=== PATIENT | female | born 1930 | race Two or more races ===

== ENCOUNTER 2018-09-01 08:37 | Emergency (ER) | payer MEDICARE ==
[~2018-09-01] VITALS: Ht 152.4 cm; Wt 49.9 kg
[~2018-09-01 08:37] MED LIST: AMLO10TA4 PO; ISOS60TA4 PO; LOSA100T3 PO; METO25TA6 PO; [UNRECOGNIZED DRUG - REMARK]
[2018-09-01] MEDS ORDERED: ACETAMINOPHEN 325 MG TABLET ONE (08:43)
--- NOTE | 2018-09-01 08:44 | NUR ---
DR DAS AT BEDSIDE FOR EVAL.
--- NOTE | 2018-09-01 08:50 | NUR ---
CALLED [facility] AT [place] . WAS INFORMED THAT SHE IS INDEPENDENT. GOT SON'S NUMBER [phone]
[2018-09-01] MEDS ORDERED: ACETAMINOPHEN 325 MG TABLET PO ONE (09:00)
--- NOTE | 2018-09-01 09:02 | NUR ---
RADIOLOGY AT BEDSIDE FOR L RIB AND HIP XRAY.
[2018-09-01] MEDS ORDERED: AMLODIPINE BESYLATE 5 MG TABLET PO ONE (09:30)
[2018-09-01] MEDS ORDERED: AMLODIPINE BESYLATE 5 MG TABLET ONE (09:35)
[2018-09-01] MEDS ORDERED: METOPROLOL TARTRATE 25 MG TABLET ONE (09:43)
--- NOTE | 2018-09-01 09:57 | NUR ---
RADDIOLOGY BACK AT BEDSIDE FOR L FEMUR XRAY.
[2018-09-01] MEDS ORDERED: METOPROLOL TARTRATE 25 MG TABLET PO ONE (10:00)
--- NOTE | 2018-09-01 11:06 | NUR ---
CALLED [facility] AT [place] . THEY WILL PICK HER UP BY [phone]
--- NOTE | 2018-09-01 12:02 | NUR ---
PT AMBULATORY W/ WALKER. ASSISTED LIVING PERSONEL PICKED UP PT. STABLE CONDITION.
[2018-09-01 12:04] VITALS: BP 166/87
== END 2018-09-01 12:05 | disposition home or self-care (01) ==
LOC: ER 08:40
DX: S20.212A Contusion of left front wall of thorax, initial encounter (principal); S50.01XA Contusion of right elbow, initial encounter; I10 Essential (primary) hypertension; J44.9 Chronic obstructive pulmonary disease, unspecified; I25.2 Old myocardial infarction; Z85.118 Personal history of other malignant neoplasm of bronchus and lung; Z98.890 Other specified postprocedural states; W18.39XA Other fall on same level, initial encounter; Y93.89 Activity, other specified; Y92.002 Bathroom of unspecified non-institutional (private) residence as the place of occurrence of the external cause; Y99.8 Other external cause status
CPT/HCPCS: 71100-TC; 72170-TC; 73552

== ENCOUNTER 2018-11-26 09:09 | Inpatient (IN) | payer MEDICARE ==
[~2018-11-26] VITALS: Ht 152.4 cm; Wt 50.0 kg
--- NOTE | 2018-11-26 09:13 | NUR ---
PT [id number], FROM [facility], C/O LEFT ELBOW PAIN AND SKIN TEAR S/P FALL, -KO, PT IS AAOX2, NOT IN RESPIRATORY DISTRESS, HOOKED TO MONITOR, KEPT RESTED AND COMFORTABLE, WILL CONTINUE TO MONITOR.
--- NOTE | 2018-11-26 09:17 | NUR ---
AT BEDSIDE FOR EVAL.
[2018-11-26] MEDS ORDERED: AMLO5TAB9 PO (09:26)
[2018-11-26] MEDS ORDERED: ALBU8.5H8 INH (09:26)
[2018-11-26] MEDS ORDERED: BRIM5DRO5 EACHEYE (09:26)
--- NOTE | 2018-11-26 09:28 | NUR ---
CALL FROM [facility],[phone], SHE CAN COME AND PICK HER UP WHEN DISCHARGED
[2018-11-26] MEDS ORDERED: IV NS 0.9% 1,000 ML BAG IV ONE (09:30)
--- NOTE | 2018-11-26 09:30 | NUR ---
IV LINE ESTABLISHED, BLOOD DRAWNED AND SENT TO LAB.
--- NOTE | 2018-11-26 09:35 | NUR ---
URINE SPECIMEN COLLECTED AND SENT TO LAB.
[2018-11-26 09:38] LABS: BASOPHILS % (AUTO) 0.4 % (0.0-2.0); EOSINOPHILS % (AUTO) 0.1 % (0.0-6.0); HEMATOCRIT 43 % (33-45); HEMOGLOBIN 14.4 g/dL (11.5-14.8); LYMPHOCYTES # (AUTO) 0.4 /CMM (0.8-4.8); LYMPHOCYTES % (AUTO) 3.6 % (20.0-44.0); MEAN CORPUSCULAR HGB CONC 34 g/dl (31.0-36.0); MEAN CORPUSCULAR VOLUME 94 fL (82-100); MONOCYTES # (AUTO) 0.7 /CMM (0.1-1.30); MONOCYTES % (AUTO) 6.4 % (2.0-12.0); NEUTROPHILS # (AUTO) 9.7 /CMM (1.8-8.9); NEUTROPHILS % (AUTO) 89.5 % (43.0-81.0); PLATELET COUNT (AUTO) 227 /CMM (150-450); RED BLOOD CELL COUNT(AUTO) 4.57 MIL/uL (4.0-5.2); WHITE BLOOD COUNT (AUTO) 10.8 K/uL (4.3-11.0)
--- NOTE | 2018-11-26 09:40 | NUR ---
RIBBING MACHINE OPERATOR AT BEDSIDE FOR XRAY.
[2018-11-26 09:48] LABS: APPEARANCE,URINE Clear (CLEAR); BILIRUBIN,URINE Negative (NEGATIVE); BLOOD, URINE Trace-lysed Ery/uL (NEGATIVE); COLOR,URINE Yellow (YELLOW); KETONES,URINE Trace (NEGATIVE); LEUKOCYTE ESTERASE ,URINE Negative (NEGATIVE); NITRITE, URINE Negative (NEGATIVE); PROTEIN,URINE Negative (NEGATIVE); UGLUCOSE Negative (NEGATIVE)
--- NOTE | 2018-11-26 09:52 | NUR ---
PT IS WHEELED TO CT SCAN.
[2018-11-26 09:56] LABS: CALCIUM, SERUM 8.8 mg/dL (8.5-10.1); CARBON DIOXIDE 21 mmol/L (21-32); CHLORIDE 109 mmol/L (98-107); GLUCOSE 140 mg/dL (74-106); POTASSIUM 3.6 mmol/L (3.5-5.1); SODIUM SERUM 143 mmol/L (136-145); UREA NITROGEN, BLOOD 19 mg/dL (7-18)
[2018-11-26 10:01] LABS: ALANINE AMINOTRANSFERASE 21 U/L (12-78); ALBUMIN 3.5 g/dL (3.4-5.0); ALKALINE PHOSPHATASE 101 U/L (46-116); ASPARTATE AMINOTRANSFERASE 24 U/L (15-37); BILIRUBIN,DIRECT 0.2 mg/dL (0.0-0.2); BILIRUBIN,TOTAL 0.6 mg/dL (0.2-1.0); TOTAL PROTEIN, SERUM 7.2 g/dL (6.4-8.2)
[2018-11-26 10:01] LABS: BACTERIA,URINE Few /HPF (None Seen); RBC,URINE 0-2 /HPF (0-2); SQUAMOUS EPITHELIAL CELL,UR Few /HPF (None Seen); WBC,URINE 0-2 /HPF (0-3)
--- NOTE | 2018-11-26 10:05 | NUR ---
CALLED NURSING SUP. FOR TELE BED.
[2018-11-26] MEDS ORDERED: LEVOFLOXACIN 500 MG /D5W 100ML 500 MG/100 ML PIGGYBACK IV ONE (10:30)
[2018-11-26] MEDS ORDERED: LEVOFLOXACIN 750 MG /D5W 150ML 150 ML IV ONE (10:31)
[2018-11-26] MEDS ORDERED: LEVOFLOXACIN 500 MG /D5W 100ML 100 ML IV ONE (10:36)
--- NOTE | 2018-11-26 11:02 | NUR ---
CALLED DR. COATS, TRANSFERRED CALL TO DR. LINDQUIST.
--- NOTE | 2018-11-26 11:10 | NUR ---
CALLED [facility], ASA NICOLE
--- NOTE | 2018-11-26 11:21 | NUR ---
AT BEDSIDE FOR EVAL.
--- NOTE | 2018-11-26 11:33 | NUR ---
REPORT GIVEN TO CHEMA YEH FOR MARTHA, WITH ONGOING ANTIBIOTIC.
[2018-11-26] MEDS ORDERED: BENZOIN COMPOUND TINCT 60 ML BOTTLE ONE (11:38)
[2018-11-26 12:00] VITALS: BP 152/84
[2018-11-26] MEDS ORDERED: Z GUARD REMEDY 2 OZ OINT TP PRN (12:30)
[2018-11-26] MEDS ORDERED: ALBUTEROL SULFATE INH 18 GM HFA.AER.AD NEB PRN (12:30)
[2018-11-26] MEDS ORDERED: ALBUTEROL FS 2.5 MG/3 ML VIAL.NEB NEB PRN (12:30)
[2018-11-26] MEDS ORDERED: ACETAMINOPHEN 325 MG TABLET PO PRN (12:30)
[2018-11-26] MEDS ORDERED: HYDROCODONE/APAP 5/325MG 1 EACH TABLET PO PRN (12:30)
[2018-11-26] MEDS ORDERED: ONDANSETRON HCL/PF 4 MG/2 ML VIAL IVP PRN (12:30)
--- NOTE | 2018-11-26 13:29 | NUR ---
BRASS CHASER ADMITTING NOTES RECEIVED REPORT FROM Torres NURSE JEAN CLAUDE GREY AND ADMITTED PT TO UNIT AT 1200 VIA GURNEY. TRANSFERRED PT TO BED GENTLY. PT IS A/O X3 AND ABLE TO MAKE NEEDS KNOWN WITH NO C/O PAIN OR DISCOMFORTS AT THIS TIME. PT ORIENTED TO UNIT, ROOM AND STAFF. PT WITH ADMITTING DX OF NSTEMI. 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 V/S TAKEN AND RECORDED. PHYSICAL ASSESSMENT DONE. PT WITH SOFT AND NON-DISTENDED ABDOMEN WITH POSITIVE BOWEL SOUNDS ON FOUR QUADRANTS. RIGHT LOWER LOBE OF LUNGS IS DIMINISHED ON AUSCULTATION. PHOTOS OF SKIN ISSUES TAKEN AND FILED ON CHART. PT WITH IV ACCESS INTACT AND FLUSHES WELL AT RIGHT AC G#18. PT PLACED ON TELEMONITORING WITH AND SHOWS SR ST WITH HR B/W 90-110, NO C/O CARDIAC DISTRESS VOICED. SAFETY MEASURES INITIATED. BED PLACED ON LOW LOCKED POSITION WITH ST UP X2. CALL LIGHT WITHIN REACH. WILL CONTINUE TO MONITOR PT ACCORDINGLY
--- NOTE | 2018-11-26 15:13 | NUR ---
RN NOTES SPOKE TO SECOND HAND BRYAN AND SAID THAT THEY WILL TRY TO DO U/S GUIDED THORACENTESIS TODAY IF NOT THEN TOMORROW. WILL FOLLOW-UP
--- NOTE | 2018-11-26 15:37 | NUR ---
RN NOTES MD WITH ORDER TO DO U/S GUIDED PARACENTESIS. PT UNABLE TO SIGNED BEC SHE'S BLIND. CONSENT OBTAINED VIA TELEPHONE FROM SON RIGOBERTO OAKES AT [facility] # [phone].
[2018-11-26 16:00] VITALS: BP 163/83
[2018-11-26] MEDS: BRIMONIDINE TARTRATE OPHT SOLN 5 ML BOTTLE EACHEYE SCH (16:33)
[2018-11-26] MEDS: METOPROLOL TARTRATE 25 MG TABLET PO SCH (16:34)
--- NOTE | 2018-11-26 17:00 | NUR ---
RN NOTES RECEIVED CALL FROM CELEBRITY CHEF ENTREPRENEUR MEDIA PERSONALITY CHRISTIANO HASTINGS THAT PT HAS CRITICAL TROPONIN LEVEL 1.442 THIS AFTERNOON. PT WITH NO C/O CARDIAC DISTRESS. DR NICOLE MADE AWARE WITH ORDER TO CHECK CPK LEVEL AND WAS 172 THIS MORNING AND INFORMED HIM OF SAID CPK RESULT. NO NEW OTHER ORDER MADE AT THIS TIME. WILL CONTINUE TO MONITOR PT.
[2018-11-26] MEDS ORDERED: ENOXAPARIN SODIUM 40 MG/0.4 ML DISP.SYRIN SQ SCH (18:00)
--- NOTE | 2018-11-26 18:10 | NUR ---
RN NOTES PT S/P RIGHT LUNG THORACENTESIS THIS AFTERNOON BY DR ALBARRAN WITH OUTPUT OF 700 BLOODY [id number] FLUID NOTED. FLUIDS SENT TO LAB FOR SAFE KEEPING IN CASE MD WILL ORDER SOME FUTURE TEST. WILL CONTINUE TO MONITOR
[2018-11-26] MEDS: ASPIRIN 81 MG TAB.CHEW PO SCH (18:31)
--- NOTE | 2018-11-26 18:40 | NUR ---
COMPUTER EDUCATION TEACHER CLOSING NOTES PT AWAKE AND RESTING AT MODERATE HIGH BACKREST POSITION. A/O X3. ABLE TO MAKE NEEDS KNOWN. PT IS LEGALLY BLIND ON BOTH EYES. S/P THORACENTESIS ON RIGHT LUNG, DRESSING ON INPLACE TO RIGHT BACK WITH NO ACTIVE BLEEDING NOTED. ON 02 VIA N/C AT 2LPM, TOLERATING WELL WITH NO SOB NOTED. IV HL ON RAC G#18 INTACT, PATENT AND FLUSHES WELL. ALL NEEDS AND CARE ATTENDED WELL. PT TURNED FROM SIDE TO SIDE Q 2HRS AND PRN. ALL NEEDS AND CARE ATTENDED WELL. SAFETY MEASURES KEPT IN PLACE. BED IN LOW LOCKED POSITION WITH SR UP X2. CALL LIGHT WITHIN REACH. WILL ENDORSE TO SAWMILL TALLY CLERK NURSE FOR MARTHA. Addendum: 11/26/18 at 1845 by LINDSEY BROWN RN ADDENDUM PATIENT ON TELE-MONITORING WITH CURRENT READING OF SINUS [id number] WITH HR ON THE 70'S, PT WITH NO C/O CARDIAC DISTRESS VOICED. MONITORING CONTINUES.
--- NOTE | 2018-11-26 19:30 | NUR ---
WELLNESS NURSE RN OPENING NOTE PATIENT IS RECEIVED IN BED. A/O X 3. OXYGEN RUNNING AT 2L/MIN. RESPIRATIONS ARE EVEN AND UNLABORED. NO SIGNS OF SOB. EXTERNAL TELE MONITOR READS SR WITH HR OF 69. IV ACCESS IN RAC GAUGE 18 PATENT AND SALINE LOCKED. BED IS LOW AND LOCKED. CALL LIGHT WITHIN REACH. WILL CONTINUE TO MONITOR.
[2018-11-26 20:00] VITALS: BP 143/73
[2018-11-26] MEDS ORDERED: CEFTRIAXONE 1 G VIAL ONE (22:30)
--- NOTE | 2018-11-26 22:35 | NUR ---
HYPERION ANALYST NOTE RECEIVED CRITICAL LAB FROM [facility]. TROPONIN 1.659. READ BACK, NOTED, AWARE.
[2018-11-26] MEDS ORDERED: AZITHROMYCIN 500 MG VIAL ONE (22:45)
[2018-11-26] MEDS: CEFTRIAXONE 1 G in IV D5W 50 ML IV SCH (22:53)
[2018-11-26] MEDS: AZITHROMYCIN 500 MG in IV D5W 250 ML IV SCH (23:42)
[2018-11-27] VITALS: BP 116/71
[2018-11-27 04:00] VITALS: BP 151/61
--- NOTE | 2018-11-27 05:40 | NUR ---
RN NOTES PT. ASKED FOR TYLENOL - BACK PAIN TYLENOL 650MG PO GIVEN ORDERED
[2018-11-27 06:08] LABS: BASOPHILS % (AUTO) 0.4 % (0.0-2.0); EOSINOPHILS % (AUTO) 6.3 % (0.0-6.0); HEMATOCRIT 44 % (33-45); HEMOGLOBIN 14.2 g/dL (11.5-14.8); LYMPHOCYTES # (AUTO) 0.7 /CMM (0.8-4.8); LYMPHOCYTES % (AUTO) 8.9 % (20.0-44.0); MEAN CORPUSCULAR HGB CONC 33 g/dl (31.0-36.0); MEAN CORPUSCULAR VOLUME 93 fL (82-100); MONOCYTES # (AUTO) 0.9 /CMM (0.1-1.30); MONOCYTES % (AUTO) 12.2 % (2.0-12.0); NEUTROPHILS # (AUTO) 5.4 /CMM (1.8-8.9); NEUTROPHILS % (AUTO) 72.2 % (43.0-81.0); PLATELET COUNT (AUTO) 220 /CMM (150-450); RED BLOOD CELL COUNT(AUTO) 4.68 MIL/uL (4.0-5.2); WHITE BLOOD COUNT (AUTO) 7.5 K/uL (4.3-11.0)
[2018-11-27 06:39] LABS: ALANINE AMINOTRANSFERASE 16 U/L (12-78); ALBUMIN 2.8 g/dL (3.4-5.0); ALKALINE PHOSPHATASE 78 U/L (46-116); ASPARTATE AMINOTRANSFERASE 25 U/L (15-37); BILIRUBIN,TOTAL 0.6 mg/dL (0.2-1.0); CALCIUM, SERUM 8.7 mg/dL (8.5-10.1); CARBON DIOXIDE 21 mmol/L (21-32); CHLORIDE 108 mmol/L (98-107); CREATININE 0.8 mg/dL (0.6-1.3); GLUCOSE 93 mg/dL (74-106); MAGNESIUM 1.8 mg/dL (1.8-2.4); PHOSPHORUS 2.6 mg/dL (2.5-4.9); POTASSIUM 3.2 mmol/L (3.5-5.1); SODIUM SERUM 142 mmol/L (136-145); TOTAL PROTEIN, SERUM 6.4 g/dL (6.4-8.2); UREA NITROGEN, BLOOD 12 mg/dL (7-18)
[2018-11-27 06:45] LABS: CHOLESTEROL 113 mg/dL (<200); HDL CHOLESTEROL 57 mg/dL (40-60); LDL 42 mg/dL (0-99); TRIGLYCERIDES 96 mg/dL (30-150)
--- NOTE | 2018-11-27 06:48 | NUR ---
AFFILIATE MARKETING SPECIALIST CLOSING NOTE PATIENT IS RESTING IN BED. A/O X 3. OXYGEN STILL RUNNING AT 2L/MIN. RESPIRATIONS ARE EVEN AND UNLABORED. NO SIGNS OF SOB. DENIES PAIN AT THIS TIME. EXTERNAL TELE MONITOR READS SR WITH PVCS. HR OF 78. IV ACCESS IN RAC GAUGE 18 PATENT AND SALINE LOCKED. BED IS LOW AND LOCKED. CALL LIGHT WITHIN REACH. WILL CONTINUE TO MONITOR. Addendum: 11/27/18 at 0650 by CODI THOMAS RN HR OF 74. SKIN KEPT CLEAN AND DRY. ALL NURSING NEEDS MET.IN NO APPARENT DISTRESS AT THIS TIME. WILL ENDORSE TO NEXT SHIFT FOR MARTHA.
--- NOTE | 2018-11-27 07:25 | NUR ---
RN ANESTHESIOLOGY OPENING NOTES RECEIVED PT IN BED, ASLEEP, EASILY AROUSED. ON SUPPLEMENTARY OXYGEN AT 2L VIA NC, WITH NO ACUTE RESPIRATORY DISTRESS NOTED. ON TELEMONITORING, SR 74; PER NIGHT NURSE WITH OCCASIONAL PVCS. PT NOT EXHIBITING ANY PAIN OR DISCOMFORT AT THIS TIME. PT DENIES ANY CONCERNS OR QUESTIONS AT THE MOMENT WELL. PIV TO RAC G18 SL, FLUSHED WITH NS, INTACT AND OPERATIONAL. PT KEPT COMFORTABLE. PT'S BED IN LOWEST, LOCKED POSITION WITH SR X3. CALL LIGHT KEPT WITHIN REACH. WILL CONTINUE PLAN OF CARE.
[2018-11-27 08:00] VITALS: BP 152/85
[2018-11-27] MEDS: BRIMONIDINE TARTRATE OPHT SOLN 5 ML BOTTLE EACHEYE SCH ×2 (08:48→16:44)
[2018-11-27] MEDS: ASPIRIN 81 MG TAB.CHEW PO SCH (08:48)
[2018-11-27] MEDS: METOPROLOL TARTRATE 25 MG TABLET PO SCH ×2 (08:49→16:45)
[2018-11-27] MEDS: AMLODIPINE BESYLATE 5 MG TABLET PO SCH (08:49)
[2018-11-27] MEDS ORDERED: ISOSORBIDE MONONITRATE 60 MG TAB.SR.24H PO SCH (09:00)
--- NOTE | 2018-11-27 09:34 | NUR ---
PUBLICATION DIRECTOR NOTES SEEN AND EVALUATED BY MD/ED WITH VERBAL ORDERS AND PLACED FOR PLEURAL FLUID TAKEN TO LAB YESTERDAY S/P THORACENTESIS. CYTOLOGY FORM FORWARDED TO LAB.
[2018-11-27] MEDS: ISOSORBIDE MONONITRATE (30MG) 30 MG TAB.SR.24H PO SCH (09:55)
[2018-11-27 12:00] VITALS: BP 134/70
[2018-11-27] MEDS: POTASSIUM CHLORIDE 20 MEQ TAB.PRT.SR PO SCH ×2 (12:19→13:15)
[2018-11-27 12:46] LABS: BASOPHILS % (AUTO) 0.4 % (0.0-2.0); EOSINOPHILS % (AUTO) 5.1 % (0.0-6.0); HEMATOCRIT 44 % (33-45); HEMOGLOBIN 14.4 g/dL (11.5-14.8); LYMPHOCYTES # (AUTO) 0.8 /CMM (0.8-4.8); LYMPHOCYTES % (AUTO) 9.2 % (20.0-44.0); MEAN CORPUSCULAR HGB CONC 33 g/dl (31.0-36.0); MEAN CORPUSCULAR VOLUME 93 fL (82-100); MONOCYTES # (AUTO) 0.9 /CMM (0.1-1.30); MONOCYTES % (AUTO) 10.8 % (2.0-12.0); NEUTROPHILS # (AUTO) 6.2 /CMM (1.8-8.9); NEUTROPHILS % (AUTO) 74.5 % (43.0-81.0); PLATELET COUNT (AUTO) 223 /CMM (150-450); RED BLOOD CELL COUNT(AUTO) 4.75 MIL/uL (4.0-5.2); WHITE BLOOD COUNT (AUTO) 8.3 K/uL (4.3-11.0)
[2018-11-27 13:03] LABS: ALANINE AMINOTRANSFERASE 17 U/L (12-78); ALBUMIN 2.8 g/dL (3.4-5.0); ALKALINE PHOSPHATASE 80 U/L (46-116); ASPARTATE AMINOTRANSFERASE 24 U/L (15-37); BILIRUBIN,TOTAL 0.5 mg/dL (0.2-1.0); CALCIUM, SERUM 8.9 mg/dL (8.5-10.1); CARBON DIOXIDE 24 mmol/L (21-32); CHLORIDE 109 mmol/L (98-107); CREATININE 0.9 mg/dL (0.6-1.3); GLUCOSE 108 mg/dL (74-106); MAGNESIUM 1.9 mg/dL (1.8-2.4); PHOSPHORUS 2.9 mg/dL (2.5-4.9); POTASSIUM 3.5 mmol/L (3.5-5.1); SODIUM SERUM 142 mmol/L (136-145); TOTAL PROTEIN, SERUM 6.4 g/dL (6.4-8.2); UREA NITROGEN, BLOOD 12 mg/dL (7-18)
[2018-11-27 16:00] VITALS: BP 126/69
[2018-11-27] MEDS: ENOXAPARIN SODIUM 60 MG/0.6 ML DISP.SYRIN SQ SCH (17:09)
--- NOTE | 2018-11-27 18:42 | NUR ---
MS RN CLOSING NOTES PT IN BED, ASLEEP, EASILY AROUSED. ON SUPPLEMENTARY OXYGEN AT 2L VIA NC, WITH NO ACUTE RESPIRATORY DISTRESS NOTED. PT DENIES ANY PAIN OR DISCOMFORT AT THIS TIME. PIV TO RAC G18 SL, FLUSHED WITH NS, INTACT AND OPERATIONAL. ALL NEEDS AND CARE ATTENDED. PT KEPT COMFORTABLE. PT'S BED IN LOWEST, LOCKED POSITION WITH SR X3. CALL LIGHT KEPT WITHIN REACH. WILL ENDORSE TO INCOMING SHIFT FOR MARTHA.
--- NOTE | 2018-11-27 19:30 | NUR ---
RECEIVED PATIENT IN BED AWAKE. AO X 3, ABLE TO MAKE NEEDS KNOWN. NO ACUTE DISTRESS NOTED. DENIES ANY PAIN AT THIS TIME. IV SITE PATENT, INTACT; FLUSHED. SAFETY REMINDERS GIVEN. ON LOW BED WITH BILATERAL UPPER SIDE RAILS UP. CALL MARTÍNEZ WITHIN EASY REACH. WILL CONTINUE TO MONITOR.
[2018-11-27 20:00] VITALS: BP 152/85
[2018-11-27] MEDS: CEFTRIAXONE 1 G in IV D5W 50 ML IV SCH (21:12)
[2018-11-27] MEDS: AZITHROMYCIN 500 MG in IV D5W 250 ML IV SCH (21:51)
--- NOTE | 2018-11-28 06:00 | NUR ---
PATIENT ASLEEP, EASILY AROUSABLE. RESPIRATIONS EVEN. NO SIGNS OF PAIN NOTED. DUE MEDS GIVEN WITH NO ASE NOTED. NEEDS ATTENDED. KEPT CLEAN AND DRY. TURNED AND REPOSITIONED Q 2 HOURS. SAFETY PRECAUTIONS AND COMFORT MEASURES IN PLACE. WILL GIVE REPORT TO DAY SHIFT FOR CONTINUITY OF CARE.
[2018-11-28 06:09] LABS: CALCIUM, SERUM 8.4 mg/dL (8.5-10.1); CARBON DIOXIDE 23 mmol/L (21-32); CHLORIDE 107 mmol/L (98-107); CREATININE 0.8 mg/dL (0.6-1.3); GLUCOSE 100 mg/dL (74-106); POTASSIUM 3.7 mmol/L (3.5-5.1); SODIUM SERUM 142 mmol/L (136-145); UREA NITROGEN, BLOOD 13 mg/dL (7-18)
--- NOTE | 2018-11-28 07:12 | NUR ---
NOTED TROPONIN 0.698. WILL ENDORSE TO DAY SHIFT. PATIENT ASYMPTOMATIC.
--- NOTE | 2018-11-28 07:30 | NUR ---
MS/RN NOTE THE PATIENT IS RECEIVED IN BED. AWAKE,ALERT AND ORIENTED X3. PATIENT IS LEGALLY BLIND ON BOTH EYES. DENIES PAIN. RESPIRATION REGULAR AND UNLABORED. PATIENT IS RECEIVING OXYGEN AT 2L/MIN VIA NASAL CANNULA AND DENIES SOB. RAC G 18 PATENT AND SALINE LOCKED. BED LOW AND LOCKED. SIDE RAILS UP X3. CALL LIGHT WITHIN REACH. WILL CONTINUE TO MONITOR.
[2018-11-28 08:00] VITALS: BP_SYST 163; BP_DIAS 59; BP_DIAS 82
--- NOTE | 2018-11-28 08:33 | NUR ---
MS/RN NOTE THE PATIENT IS SEEN BY DR BURNS WITH NEW ORDER OF PT EVALUATION. THE ORDER IS READ BACK, VERIFIED. NOTED AND CARRIED OUT.
[2018-11-28] MEDS: BRIMONIDINE TARTRATE OPHT SOLN 5 ML BOTTLE EACHEYE SCH ×2 (09:00→17:00)
[2018-11-28] MEDS: ISOSORBIDE MONONITRATE (30MG) 30 MG TAB.SR.24H PO SCH (09:00)
[2018-11-28] MEDS: VALSARTAN 80 MG TABLET PO SCH ×2 (09:00→09:01)
[2018-11-28] MEDS: AMLODIPINE BESYLATE 5 MG TABLET PO SCH (09:00)
[2018-11-28] MEDS: METOPROLOL TARTRATE 25 MG TABLET PO SCH ×2 (09:00→17:47)
[2018-11-28] MEDS: ASPIRIN 81 MG TAB.CHEW PO SCH (09:01)
[2018-11-28 10:00] VITALS: BP 118/63
--- NOTE | 2018-11-28 11:48 | NUR ---
WOUND CARE CONSULT :PATIENT SEEN AT BEDSIDE, PATENT PRESENTS WITH LT ELBOW, LT LOWER ARM SKIN TEAR, RT HAND WITH SCAB AND MULTIPLE BRUISES ON ARMS AND LT LOWER LEG ,PRESENT ON ADMISSION, CURRENT TOBI SCORE IS 16 ISOFLEX SHADIA IN USE ,RECOMMENDATION MADE FOR SKIN PROTECTION AND DISCUSSED WITH NURSING STAFF, IN AGREEMENT WITH PLAN OF CARE, WILL SEE PRN Addendum: 11/28/18 at 1154 by ALFREDO MENCHACA RN Amended: Links added.
[2018-11-28 16:00] VITALS: BP 134/75
--- NOTE | 2018-11-28 16:00 | NUR ---
MS/RN OXYGEN SAT IN ROOM AIR PATIENT`S OXYGEN SATURATION IS ROOM AIR IS AT 90%.
--- NOTE | 2018-11-28 17:00 | NUR ---
MS/RN NOTE PER LAB PATHO AND CYTO OF THORACENTESIS FLUID IS IN PROCESS. UPCOMING SHIFT IS ENDORSED TO CONTINUE FOLLOW UP.
[2018-11-28] MEDS: ENOXAPARIN SODIUM 60 MG/0.6 ML DISP.SYRIN SQ SCH (17:54)
--- NOTE | 2018-11-28 18:20 | NUR ---
MS/RN NOTE THE PATIENT ALERT AND ORIENTED X3. LEGALLY BLIND. RECEIVING OXYGEN AT 2L/MIN VIA NASAL CANNULA AND SATURATION IS AT 95%. DENIES SOB. RESPIRATION REGULAR AND UNLABORED. DENIES PAIN. THE PATIENT IN NO APPARENT DISTRESS/ RAC G 18 PATENT AND SALINE LOCKED. BED LOW AND LOCKED. SIDE RAILS UP X3. CALL LIGHT WITHIN REACH. WILL ENDORSE TO MEDICAL DRIVER.
--- NOTE | 2018-11-28 19:35 | NUR ---
RN OPENING NOTES RECEIVED REPORT FROM DAYSHIFT RN, [place]. FOUND Pt AWAKE, RESTING IN BED. NO S/S OF ACUTE DISTRESS OR SOB NOTED. Pt IS A/OX3, VERBAL, ABLE TO MAKE NEEDS KNOWN. Pt IS LEGALLY BLIND IN BOTH EYES. IV ACCESS ON RAC #18G, SL. SAFETY MEASURES IN PLACE. BED LOW, LOCKED, HOB ELEVATED, SIDE RAILS UP, CALL LIGHT AND BEDSIDE TABLE WITHIN REACH. BED ALARM ON. WILL CONTINUE TO MONITOR Pt's CONDITION AND SAFETY THROUGHOUT THE NIGHT.
[2018-11-28 20:00] VITALS: BP 166/80
[2018-11-28] MEDS: CEFTRIAXONE 1 G in IV D5W 50 ML IV SCH (21:41)
--- NOTE | 2018-11-28 22:00 | NUR ---
RN NOTES IV ACCESS ON RAC #18 LEAKING. REMOVED. SECURED WITH GAUZE AND TAPE. NEW IV ACCESS ON RFA #22G
[2018-11-28] MEDS: AZITHROMYCIN 500 MG in IV D5W 250 ML IV SCH (23:32)
--- NOTE | 2018-11-29 07:45 | NUR ---
RN CLOSING NOTES NO SIGNIFICANT CHANGES IN Pt's CONDITION. Pt REMAINS STABLE AT THIS TIME. NO S/S OF ACUTE DISTRESS OR SEVERE SOB NOTED DURING THE NIGHT. Pt IS RESTING IN BED, RESPIRATIONS EVEN AND UNLABORED. ALL NEEDS MET AND ATTENDED TO. SAFETY MEASURES IN PLACE. ENDORSED TO DAYSHIFT RN FOR Pt's MARTHA.
[2018-11-29 08:00] VITALS: BP 116/66
[2018-11-29] MEDS: ISOSORBIDE MONONITRATE (30MG) 30 MG TAB.SR.24H PO SCH (10:07)
[2018-11-29] MEDS: VALSARTAN 80 MG TABLET PO SCH (10:10)
[2018-11-29] MEDS: METOPROLOL TARTRATE 25 MG TABLET PO SCH ×2 (10:11→17:20)
[2018-11-29] MEDS: AMLODIPINE BESYLATE 5 MG TABLET PO SCH (10:12)
[2018-11-29] MEDS: ASPIRIN 81 MG TAB.CHEW PO SCH (10:13)
[2018-11-29] MEDS: BRIMONIDINE TARTRATE OPHT SOLN 5 ML BOTTLE EACHEYE SCH ×2 (10:23→17:20)
[2018-11-29 16:00] VITALS: BP 135/65
[2018-11-29] MEDS: ENOXAPARIN SODIUM 60 MG/0.6 ML DISP.SYRIN SQ SCH (18:23)
--- NOTE | 2018-11-29 18:48 | NUR ---
RN NOTED PATIENT REMAIN STABLE ALL THROUGH THE SHIFT , NO COMPLAINTS OF ACUTE PAIN , VITAL SIGNS MAINTAINED STABLE , TOLERATED PRESCRIBED DIET , PT SAT OUT OF BED AMBULATED TO BATHROOM HAD BOWEL MOVEMENT ALL CARE GIVEN WILL ENDORSE TO CORPORATE COMMUNICATIONS SPECIALIST
[2018-11-29 20:00] VITALS: BP_SYST 124; BP_SYST 129; BP_DIAS 60; BP_DIAS 61
--- NOTE | 2018-11-29 20:00 | NUR ---
MS/RN OPENING NOTES RECEIVED PATIENT IN BED, RESTING COMFORTABLY IN BED, RESPIRATIONS EVEN AND UNLABORED, ON NASAL CANULA VIA NASAL CANULA AT 2 LITER, SKIN WARM TO TOUCH,, WILL CONTINUE TO PROVIDE CARE. BED LOCKED, CALL LIGHTS WITHIN REACH, IV OM RIGHT FOREARM PATENT WILL MONITOR.
[2018-11-29] MEDS: CEFTRIAXONE 1 G in IV D5W 50 ML IV SCH (21:38)
[2018-11-29] MEDS: AZITHROMYCIN 250 MG TABLET PO SCH (21:39)
[2018-11-30 06:00] VITALS: BP 163/75
[2018-11-30 06:06] VITALS: BP 163/75
--- NOTE | 2018-11-30 07:28 | NUR ---
MS RN OPENING NOTES RECEIVED PATIENT AWAKE IN BED IN NO ACUTE SIGNS OF DISTRESS. HOB ELEVATED. A/O X 3. VERBALLY RESPONSIVE, DENIES PAIN OR ANY DISCOMFORTS AT THIS TIME. ON 02 VIA N/C AT 2LPM, BREATHING EVEN AND UNLABORED. IV ACCESS IN RFA INTACT AND FLUSHES WELL WITH REDNESS OR INFILTRATIONS NOTED AT SITE. SAFETY MEASURES IN PLACE. BED IN LOW LOCKED POSITION WITH SIDE RAILS UPX2. BED ALARM ON. CALL LIGHT WITHIN REACH. WILL CONTINUE TO MONITOR
--- NOTE | 2018-11-30 07:42 | NUR ---
MS/RN NOTES PATIENT IN BED RESTING COMFORTABLY IN BED, BED LOCKED CALL LIGHTS WITHIN REACH. ENDORSED TO AM RN FOR MARTHA.
[2018-11-30 08:00] VITALS: BP 146/72
--- NOTE | 2018-11-30 08:17 | NUR ---
RN NOTES PT SEEN BY DR COATS WITH ORDER TO CHECK SP02 ON ROOM AIR. PT'S SPO02 ON RA 91-92% WITH NO C/O SOB. WILL CONTINUE TO MONITOR.
[2018-11-30] MEDS: VALSARTAN 80 MG TABLET PO SCH (08:48)
[2018-11-30] MEDS: ISOSORBIDE MONONITRATE (30MG) 30 MG TAB.SR.24H PO SCH (08:50)
[2018-11-30] MEDS: METOPROLOL TARTRATE 25 MG TABLET PO SCH ×2 (08:51→17:00)
[2018-11-30] MEDS: AMLODIPINE BESYLATE 5 MG TABLET PO SCH (08:51)
[2018-11-30] MEDS: BRIMONIDINE TARTRATE OPHT SOLN 5 ML BOTTLE EACHEYE SCH ×2 (08:51→17:07)
[2018-11-30] MEDS: ASPIRIN 81 MG TAB.CHEW PO SCH (08:52)
[2018-11-30] MEDS: DICYCLOMINE HCL 10 MG CAPSULE PO SCH ×3 (11:59→23:27)
[2018-11-30] MEDS: ENOXAPARIN SODIUM 30 MG/0.3 ML DISP.SYRIN SQ SCH (14:22)
[2018-11-30 16:00] VITALS: BP 114/49
--- NOTE | 2018-11-30 18:43 | NUR ---
MS RN CLOSING NOTES PATIENT IN BED AWAKE AND RESTING AT MODERATE HIGH BACKREST POSITION. A/O X 3, SAME VERBALLY RESPONSIVE. PT IS LEGALLY BLIND ON BOTH EYES. ON ROOM AIR AT THIS TIME, TOLERATING WELL WITH NO SOB NOTED. IV ACCESS ON RFA G #22 INTACT AND FLUSHES WELL, NO REDNESS OR INFILTRATIONS NOTED AT SITE. ALL NEEDS AND CARE ATTENDED WELL. SAFETY MEASURES KEPT IN PLACE. BED IN LOW LOCKED POSITION WITH SIDE RAILS UPX2. BED ALARM ON. CALL LIGHT WITHIN REACH.WILL ENDORSE TO KIER OPERATOR NURSE FOR MARTHA.
--- NOTE | 2018-11-30 19:53 | NUR ---
MS/RN OPENING NOTES RECEIVED PATIENT IN BED, AWAKE, ALERT X3, ABLE TO VERBALIZE NEEDS, RESPIRATIONS EVEN AND UNLABORED AND INTERMITENT USE OF OXYGEN NEEDED ONLY. TO TITRATE SKIN WARM TO TOUCH. RECEIVED REPORT FROM AM RN FOR MARTHA. WILL MONITOR. BED LOCKED, CALL LIGHTS WITHIN REACH WILL MONITOR.
[2018-11-30 20:00] VITALS: BP 107/52
[2018-11-30 20:11] VITALS: BP 107/52
[2018-11-30] MEDS: CEFTRIAXONE 1 G in IV D5W 50 ML IV SCH (21:22)
[2018-11-30] MEDS: AZITHROMYCIN 250 MG TABLET PO SCH (21:22)
--- NOTE | 2018-11-30 22:00 | NUR ---
MS/RN NOTES IV ANTIBIOTIC NOT ABLE TO INFUSE PATIETN IV SITE LEAKED AND PATIENT REFUSE TO HAVE A NEW SITE INSERTED. MD AWARE TO FOLLOW UP IN AM FOR ANTIOBIOTC THERAPY NEEDS.
--- NOTE | 2018-11-30 22:30 | NUR ---
ms/rn notes PATIENT IV LINE LEAKING AND REQUIRE A NEW LINE INSERTED, PATIENT REFUSED TO HAVE IV INSERTED REPORTED FRAIL SKIN AND VEIN COLLAPSES EASILY THAT PREFER ORAL ANTIBIOTIC INSTEAD, MD REYES WAS MADE AWARE AND SAID TO INFORM AM MD REGARDING ANTIBIOTIC CONCERNS AND FOR PROPER DISCHARGE INSTRUCTIONS.
[2018-12-01] MEDS: DICYCLOMINE HCL 10 MG CAPSULE PO SCH ×2 (05:55→12:00)
--- NOTE | 2018-12-01 06:33 | NUR ---
MS/RN NOTES PATIENT IN BED, AWAKE, WATCHING TV, ABLE TO VERBALIZE NEEDS, ABLE TO TOLERATE ORAL MEDICATION, CHANGE WOUND DRESSING ON LEFT ARM, KEPT COMFORTABLE, ABLE TO GROOM SELF WITH ASSISTANCE, RESPIRATIONS EVEN AND UNLABORED, BED LOCKED, CALL LIGHTS WITHIN REACH WILL MONITOR.
--- NOTE | 2018-12-01 07:16 | NUR ---
MS RN OPENING NOTES RECEIVED PATIENT AWAKE IN BED IN NO ACUTE SIGNS OF DISTRESS. HOB ELEVATED. A/O X 3. VERBALLY RESPONSIVE, DENIES PAIN OR ANY DISCOMFORTS AT THIS TIME. ON ROOM AIR, BREATHING EVEN AND UNLABORED. NO IV ACCESS AT THIS TIME, PT REFUSED NEW LINE TO BE INSERTED. SAFETY MEASURES IN PLACE. BED IN LOW LOCKED POSITION WITH SIDE RAILS UPX2. BED ALARM ON. CALL LIGHT WITHIN REACH. WILL CONTINUE TO MONITOR
[2018-12-01 08:00] VITALS: BP 126/60
[2018-12-01] MEDS: ASPIRIN 81 MG TAB.CHEW PO SCH (08:41)
[2018-12-01] MEDS: ISOSORBIDE MONONITRATE (30MG) 30 MG TAB.SR.24H PO SCH (08:41)
[2018-12-01] MEDS: AMLODIPINE BESYLATE 5 MG TABLET PO SCH (08:42)
[2018-12-01] MEDS: METOPROLOL TARTRATE 25 MG TABLET PO SCH (08:42)
[2018-12-01] MEDS: BRIMONIDINE TARTRATE OPHT SOLN 5 ML BOTTLE EACHEYE SCH (08:43)
[2018-12-01] MEDS: VALSARTAN 80 MG TABLET PO SCH (08:47)
[2018-12-01] MEDS: ENOXAPARIN SODIUM 30 MG/0.3 ML DISP.SYRIN SQ SCH (14:19)
[2018-12-01] MEDS ORDERED: LEVO500T75 PO (14:48)
--- NOTE | 2018-12-01 14:50 | NUR ---
RN NOTES PT FOR DISCHARGE TO [facility] THIS AFTERNOON. CALLED AND REPORT GIVEN TO NURSE OXYGRAPH OPERATOR DUONG. PT AND FAMILY AWARE OF DISCHARGE.
[2018-12-01 16:00] VITALS: BP 142/60
--- NOTE | 2018-12-01 16:31 | NUR ---
RN DISCHARGED NOTES PT DISCHARGED TO [facility] IN STABLE CONDITION. A/O X3 AND ABLE TO MAKE NEEDS KNOWN. PT TOLERATED ROOM AIR WITH NO SOB NOTED. V/S TAKEN, STABLE AND RECORDED. PHOTOS OF SKIN ISSUES TAKEN AND FILED ON CHART. ALL BELONGINGS ACCOUNTED FOR. HER THREE YELLOW COLORED KEYS PLACED ON HER RIGHT ARM. HEALTH TEACHINGS GIVEN TO PT BUT UNABLE TO SIGN DISCHARGE PAPERS DUE TO BLINDNESS ON BOTH EYES BUT UNDERSTOOD ABOUT DISCHARGE INSTRUCTIONS. DISCHARGE PAPERS CO SIGNED BY CHEMA CORREA. PT LEFT UNIT VIA GURNEY AT 1625 ACCOMPANIED BY 2 EMT'S. MD AND CHARGE NURSE AWARE OF DISCHARGE. ADDENDUM: CALLED [facility] JUST NOW AND SPOKE TO RNS CHARLY AND INFORMED HER THAT PT IS ON CARDIAC DIET GLUTEN FREE AND TO CONTINUE ON ORAL ATB LEVAQUIN 500MG OD X 5 DAYS.
== END 2018-12-01 16:30 | DRG 180 ==
LOC: ER 09:11 → TELE 10:52 → MED 11-27 12:32
PROVIDERS: ADMIT Internal Medicine; ATTEND Internal Medicine
PROC: 0W993ZZ Drainage of Right Pleural Cavity, Percutaneous Approach (ICD-10-PCS; principal; 2018-11-27)
DX: C34.91 Malignant neoplasm of unspecified part of right bronchus or lung (principal); J15.9 Unspecified bacterial pneumonia; J96.01 Acute respiratory failure with hypoxia; I21.A1 Myocardial infarction type 2; E44.0 Moderate protein-calorie malnutrition; J91.0 Malignant pleural effusion; E78.5 Hyperlipidemia, unspecified; I25.10 Atherosclerotic heart disease of native coronary artery without angina pectoris; I11.0 Hypertensive heart disease with heart failure; E87.6 Hypokalemia; Z85.118 Personal history of other malignant neoplasm of bronchus and lung; I25.2 Old myocardial infarction; J43.9 Emphysema, unspecified; M25.522 Pain in left elbow; W19.XXXA Unspecified fall, initial encounter; Y92.099 Unspecified place in other non-institutional residence as the place of occurrence of the external cause; I50.9 Heart failure, unspecified
CPT/HCPCS: 36415; 70450-TC; 71045-TC; 71250-TC; 72125-TC; 72131-TC; 73070-TC; 73090-TC; 76942-TC; 80048-TC; 80053-TC; 80061-TC; 80076-TC; 81000-TC; 82040-TC; 82550-TC; 83605-TC; 83735-TC; 84100-TC; 84484-TC; 85025-TC; 85730-TC; 87040-TC; 87070-TC; 87081-TC; 87086-TC; 88112-TC; 88305-TC; 88312-TC; 88342; 89051-TC; 93307-TC; 94799-TC; 97110-TC; 97116-TC; 97530-TC; A6403; G0378; J0456; J0696; J1650; J1956; J7030; J7050; J7060

== ENCOUNTER 2018-12-12 10:16 | Inpatient (IN) | payer MEDICARE ==
[~2018-12-12] VITALS: Ht 162.6 cm; Wt 48.1 kg
[~2018-12-12 10:16] MED LIST changes: +ALBU8.5H8 INH; -AMLO10TA4 PO; +AMLO5TAB9 PO; +BRIM5DRO5 EACHEYE; +LEVO500T75 PO; -LOSA100T3 PO; -[UNRECOGNIZED DRUG - REMARK]
[2018-12-12] MEDS ORDERED: IV NS 0.9% 500 ML BAG IV ONE (10:30)
--- NOTE | 2018-12-12 10:39 | NUR ---
SON ROSSI OAKES CALLED ABOUT CONDITION OF MOTHER. LEFT CONTACT INFO. .
[2018-12-12] MEDS ORDERED: LISI10TA5 PO (10:41)
[2018-12-12] MEDS ORDERED: ASPI-1169 PO (10:41)
[2018-12-12] MEDS ORDERED: PROP15DR RIGHTEYE (10:41)
[2018-12-12] MEDS ORDERED: FLUT1DIS3 IH (10:41)
[2018-12-12] MEDS ORDERED: ALPR0.25 PO (10:41)
[2018-12-12] MEDS ORDERED: DICL150D4 RIGHTEYE (10:41)
[2018-12-12] MEDS ORDERED: ACET-868 PO (10:41)
[2018-12-12] MEDS ORDERED: PRED5DRO24 RIGHTEYE (10:41)
[2018-12-12 10:47] LABS: BASOPHILS % (AUTO) 0.3 % (0.0-2.0); EOSINOPHILS % (AUTO) 2.9 % (0.0-6.0); HEMATOCRIT 40 % (33-45); HEMOGLOBIN 13.1 g/dL (11.5-14.8); LYMPHOCYTES # (AUTO) 0.7 /CMM (0.8-4.8); LYMPHOCYTES % (AUTO) 5.2 % (20.0-44.0); MEAN CORPUSCULAR HGB CONC 32 g/dl (31.0-36.0); MEAN CORPUSCULAR VOLUME 94 fL (82-100); MONOCYTES # (AUTO) 0.7 /CMM (0.1-1.30); MONOCYTES % (AUTO) 5.2 % (2.0-12.0); NEUTROPHILS # (AUTO) 11.6 /CMM (1.8-8.9); NEUTROPHILS % (AUTO) 86.4 % (43.0-81.0); PLATELET COUNT (AUTO) 361 /CMM (150-450); WHITE BLOOD COUNT (AUTO) 13.4 K/uL (4.3-11.0)
[2018-12-12 10:56] LABS: CALCIUM, SERUM 9.3 mg/dL (8.5-10.1); CARBON DIOXIDE 28 mmol/L (21-32); CHLORIDE 105 mmol/L (98-107); CREATININE 1.1 mg/dL (0.6-1.3); GLUCOSE 151 mg/dL (74-106); POTASSIUM 4.6 mmol/L (3.5-5.1); SODIUM SERUM 140 mmol/L (136-145); UREA NITROGEN, BLOOD 17 mg/dL (7-18)
--- NOTE | 2018-12-12 11:12 | NUR ---
CALLED SONROSSI, AT [phone], TRANSFERRED CALL TO
--- NOTE | 2018-12-12 11:22 | NUR ---
EPIC PAGED, MICROBIOLOGICAL ANALYST
[2018-12-12] MEDS ORDERED: PIPERACILLIN /TAZOBACTAM 3.375 G in IV D5W 50 ML IV ONE (11:30)
[2018-12-12] MEDS ORDERED: VANCOMYCIN 1 GM in IV D5W 250 ML IV ONE (11:30)
--- NOTE | 2018-12-12 11:35 | NUR ---
CALLED NURSING SUP. FOR TELE BED
--- NOTE | 2018-12-12 11:58 | NUR ---
TELE 325-2
[2018-12-12 12:40] VITALS: BP 142/76
--- NOTE | 2018-12-12 12:40 | NUR ---
CASINO RUNNERTERRAZZO JOURNEYMAN NOTE PATIENT ARRIVED BY LILA. PATIENT IS NONAMBULATORY TO BED. PATIENT IS ALERT AND ORIENTED X4. PATIENT IN NO ACUTE DISTRESS. NO SOB NOTED. PATIENT BREATHING IS EVEN AND UNLABORED. PATIENT BREATHING ON OXYGEN NC AT 4L. PATIENT IN NO PAIN AT THIS TIME. NO FACIAL GRIMACING NOTED. SKIN ASSESSED. PATIENT EXTREMITIES OFFLOADED ON PILLOW. SAFETY PRECAUTIONS IN PLACE. PATIENT BED IS LOCKED AND IN LOWEST POSITION. CALL LIGHT WITHIN REACH. WILL CONTINUE TO MONITOR. MD NOTIFIED OF PATIENTS ARRIVAL, MD MADE AWARE . AWAITING ADMISSION ORDERS, WILL FOLLOW UP.
[2018-12-12 12:45] VITALS: BP 142/76
[2018-12-12] MEDS ORDERED: MAGNESIUM HYDROXIDE 30 ML UDC PO PRN (14:00)
[2018-12-12] MEDS ORDERED: HYDROCODONE/APAP 5/325MG 1 EACH TABLET PO PRN (14:00)
[2018-12-12] MEDS ORDERED: Z GUARD REMEDY 2 OZ OINT TP PRN (14:00)
[2018-12-12] MEDS ORDERED: MAG HYDROX/AL HYDROX/SIMETH 30 ML UDC PO PRN (14:00)
[2018-12-12] MEDS ORDERED: ZOLPIDEM TARTRATE 5 MG TABLET PO PRN (14:00)
[2018-12-12] MEDS ORDERED: ONDANSETRON HCL/PF 4 MG/2 ML VIAL IVP PRN (14:00)
[2018-12-12] MEDS ORDERED: FEE PK DOSING 1 MIN EA MC ONE (14:14)
[2018-12-12] MEDS ORDERED: VANCOMYCIN 1 GM in IV NS 0.9% 250 ML IV SCH (14:30)
[2018-12-12] MEDS ORDERED: DICLOFENAC 0.1% OPTH DROPS 5 ML BOTTLE EACHEYE SCH (14:30)
[2018-12-12] MEDS ORDERED: POLYVINYL ALCOHOL/POVIDONE 0.4 ML DROPERETTE EACHEYE PRN (14:30)
[2018-12-12] MEDS: DICLOFENAC 0.1% OPTH DROPS 5 ML BOTTLE RIGHTEYE SCH ×2 (14:56→17:32)
[2018-12-12] MEDS: ALBUTEROL FS 2.5 MG/3 ML VIAL.NEB NEB SCH ×2 (15:41→19:43)
[2018-12-12] MEDS: IPRATROPIUM NEB FS 0.5 MG/2.5 ML AMPUL.NEB NEB SCH ×3 (15:41→23:14)
[2018-12-12 16:00] VITALS: BP 116/56
--- NOTE | 2018-12-12 16:21 | NUR ---
PHLEBOTOMY LAB ASSISTANT NOTE INFORMED DR. VALENZUELA ABOUT PATIENT WISHES FOR DNR/DNI. POLST HAS NO SIGNATURE FROM PATIENT. PATIENT CAN NOT SIGN FORM. CALLED THE SON WHO IS THE DIRECT POWER OF AMBULANCE DISPATCHER. HE CURRENTLY LIVES IN [place]. PER SON HE WILL TRY TO FAX IT OVER TONIGHT OR TOMORROW MORNING. SON IS AWARE WITHOUT SIGNATURE PATIENT IS FULL CODE. CALLED [facility] WHERE PATIENT IS FROM. [facility] ALSO DOES NOT HAVE APPROPRIATE POLST FORM WITH SIGNATURE. DR. VALENZUELA MADE AWARE. SON MADE AWARE. CHARGE NURSE MADE AWARE. PER CHARGE NURSE WILL CONTINUE TO FOLLOW UP.
--- NOTE | 2018-12-12 16:30 | NUR ---
FREIGHT TALLIER NOTE DISCUSSED TO SON WHO IS THE DPOA, REGARDING THE SIGNATURE FOR POLST. DR. VALENZUELA REFUSES TO SIGN POLST WITHOUT SIGNATURE FROM PATIENT. INFORMED DR. VALENZUELA ABOUT SON AND PATIENTS WISHES TO BE DNR/DNI. DR. VALENZUELA REFUSES TO SIGN WITHOUT POLST SIGNATURE. Addendum: 12/12/18 at 1921 by SAMI ORELLANA RN DR. VALENZUELA WAS AWARE OF PATIENT AND SONS WISHES, BUT WILL ONLY SIGN POLST AND ORDER WITH SIGNATURE FROM DPOA. SON AWARE OF SITUATION AND ACKNOWLEDGES PATIENT IS FULL CODE WITHOUT POLST BUT IS UNHAPPY AND WANTS RESOLUTION TO HAVE PATIENT DNR. PER CHARGE NURSE RAMÓN AWARE AND WILL CONTINUE TO FOLLOW UP.
[2018-12-12] MEDS ORDERED: BRIMONIDINE TARTRATE OPHT SOLN 5 ML BOTTLE EACHEYE SCH (17:00)
[2018-12-12 17:18] VITALS: BP 118/65
[2018-12-12] MEDS: ZOSYN IVPB 2.25 G in IV D5W 50ml IV SCH (17:31)
[2018-12-12] MEDS: prednisoLONE ACETATE OPHT DROPS 5 ML BOTTLE RIGHTEYE SCH (17:32)
[2018-12-12] MEDS: METOPROLOL TARTRATE 25 MG TABLET PO SCH (17:34)
[2018-12-12] MEDS ORDERED: PIPERACILLIN /TAZOBACTAM 4.5 G in IV D5W 50 ML IV SCH (18:00)
[2018-12-12] MEDS: BRIMONIDINE TARTRATE OPHT SOLN 5 ML BOTTLE RIGHTEYE SCH (18:48)
--- NOTE | 2018-12-12 18:48 | NUR ---
FILAMENT WELDER CLOSING NOTES PATIENT IN BED RESTING COMFORTABLY. PATIENT STATES SHE IS A LITTLE NAUSEOUS BUT DOES NOT WANT MEDICATION FOR NAUSEOUSNESS AND STATES SHE WANTS TO WAIT TILL IT PASSES ON ITS OWN. PATIENT IS IN NO ACUTE DISTRESS. NO SOB NOTED. PATIENT BREATHING ON HUMIDIFIED O2 NC AT 4L. PATIENT BREATHING IS EVEN AND UNLABORED. PATIENT ON CARDIAC MONITORING, SINUS RHYTHM 84. PATIENT ABLE TO VERBALIZE NEEDS AND CONCERNS. NEEDS AND CONCERNS ADDRESSED. WILL ENDORSE TO RAPIER INSERTION LOOM FIXER REGARDING DNR STATUS. SON INSISTS FOR MOTHER TO BE DNR/ DNI. AND DR. VALENZUELA INSISTED ON HAVING A SIGNATURE FROM SON (DPOA) BEFORE SIGNING OFF ORDER, PATIENT IS LEGALLY BLIND AND CAN NOT SIGN EVEN THOUGH HER WISHES ARE TO BE DNR/ DNI. SON IS AWARE BUT WANTS RESOLUTION REGARDING DNR STATUS. PER CHARGE NURSE RAMÓN, STATUS OF PATIENT DNR/DNI WILL CONTINUE TO BE FOLLOWED UP. WILL ENDORSE TO RAPIER INSERTION LOOM FIXER TO CONTINUE TO FOLLOW UP. PATIENT SAFETY PRECAUTIONS IN PLACE. PATIENT KEPT CLEAN, DRY, AND REPOSITIONED THROUGHOUT SHIFT. PATIENT EXTREMITIES OFFLOADED ON PILLOW. PATIENT BED IS LOCKED AND IN LOWEST POSITION. CALL LIGHT WITHIN REACH. WILL ENDORSE CARE TO PM SHIFT FOR MARTHA.
--- NOTE | 2018-12-12 19:46 | NUR ---
STAFF PSYCHOLOGIST OPENING NOTES RECEIVED PATIENT IN BED AWAKE, ALERT AND ORIENTED X3, VERBALLY RESPONSIVE, ABLE TO MAKE NEEDS KNOWN. BREATHING EVEN AND UNLABORED. NO SOB NOTED. ON 4LPM VIA NC. DENIES PAIN OR DISCOMFORT. NO FACIAL GRIMACING. IV ON RIGHT WRIST INTACT AND PATENT. SKIN DRY AND WARM TO TOUCH. AFEBRILE. ALL OTHER NEEDS ATTENDED TO. SAFETY MEASURES IN PLACE. CALL LIGHT WITHIN REACH. WILL CONTINUE TO MONITOR. Addendum: 12/12/18 at 1949 by ISMAEL LINDER RN SR 84 ON TELE MONITOR,
[2018-12-12 20:06] VITALS: BP 105/55
[2018-12-12] MEDS: ALPRAZOLAM 0.25 MG TABLET PO SCH (21:52)
[2018-12-12] MEDS: ASPIRIN 81 MG TAB.CHEW PO SCH (21:52)
[2018-12-12] MEDS ORDERED: LISINOPRIL (10MG) 10 MG TABLET PO SCH (22:00)
[2018-12-13] VITALS: BP 111/64
[2018-12-13] MEDS: ZOSYN IVPB 2.25 G in IV D5W 50ml IV SCH ×5 (00:07→23:06)
[2018-12-13] MEDS: IPRATROPIUM NEB FS 0.5 MG/2.5 ML AMPUL.NEB NEB SCH ×6 (03:18→23:30)
[2018-12-13 04:00] VITALS: BP 118/54
[2018-12-13] MEDS: VANCOMYCIN 1 GM in IV D5W 250 ML IV SCH ×2 (05:29→23:57)
[2018-12-13 06:38] LABS: BASOPHILS % (AUTO) 0.1 % (0.0-2.0); CALCIUM, SERUM 8.3 mg/dL (8.5-10.1); CREATININE 0.9 mg/dL (0.6-1.3); EOSINOPHILS % (AUTO) 0.9 % (0.0-6.0); HEMATOCRIT 33 % (33-45); HEMOGLOBIN 10.8 g/dL (11.5-14.8); LYMPHOCYTES # (AUTO) 0.6 /CMM (0.8-4.8); LYMPHOCYTES % (AUTO) 5.5 % (20.0-44.0); MAGNESIUM 1.9 mg/dL (1.8-2.4); MEAN CORPUSCULAR HGB CONC 33 g/dl (31.0-36.0); MEAN CORPUSCULAR VOLUME 92 fL (82-100); MONOCYTES # (AUTO) 0.8 /CMM (0.1-1.30); MONOCYTES % (AUTO) 7.2 % (2.0-12.0); NEUTROPHILS # (AUTO) 9.9 /CMM (1.8-8.9); NEUTROPHILS % (AUTO) 86.3 % (43.0-81.0); PHOSPHORUS 3.7 mg/dL (2.5-4.9); PLATELET COUNT (AUTO) 295 /CMM (150-450); POTASSIUM 3.9 mmol/L (3.5-5.1); RED BLOOD CELL COUNT(AUTO) 3.62 MIL/uL (4.0-5.2); WHITE BLOOD COUNT (AUTO) 11.5 K/uL (4.3-11.0)
--- NOTE | 2018-12-13 06:56 | NUR ---
INSTALLER SOFT TOP NOTES PATIENT REQUESTED FOR ANOTHER IV ACCESS DUE TO CURRENT ONE HURTING HER. SITE WAS RED UPON ASSESSMENT. NEW IV STARTED ON RIGHT AC G#20. GOOD BLOOD RETURN. INTACT AND PATENT. WILL CONTINUE TO MONITOR.
--- NOTE | 2018-12-13 06:57 | NUR ---
BRAND ADVISOR CLOSING NOTES PATIENT RESTING IN BED. NO ACUTE CHANGES THROUGHOUT SHIFT. BREATHING EVEN AND UNLABORED. NO SOB NOTED. ON 4LPM VIA NC. DENIES PAIN OR DISCOMFORT. NO FACIAL GRIMACING. IV ON RIGHT AC INTACT AND PATENT. KEPT CLEAN DRY AND COMFORTABLE. ALL OTHER NEEDS ATTENDED TO. SAFETY MEASURES IN PLACE. CALL LIGHT WITHIN REACH. WILL ENDORSE TO ONCOMING NURSE FOR MARTHA. Addendum: 12/13/18 at 0700 by ISMAEL LINDER RN SR ON TELE MONITOR.
[2018-12-13] MEDS: ALBUTEROL FS 2.5 MG/3 ML VIAL.NEB NEB SCH ×4 (07:59→19:56)
[2018-12-13 08:00] VITALS: BP 111/59
--- NOTE | 2018-12-13 08:00 | NUR ---
INSIDE STEWARD/STEWARDESS AM NOTES RECEIVED PATIENT IN BED AWAKE, ALERT AND ORIENTED X3, VERBALLY RESPONSIVE, ABLE TO MAKE NEEDS KNOWN. BREATHING EVEN AND UNLABORED. NO SOB NOTED. ON 4LPM VIA NC. DENIES PAIN OR DISCOMFORT. NO FACIAL GRIMACING. IV ON RIGHT WRIST INTACT AND PATENT. SEEN BY DR COATS AND DC'D TELE MONITOR WITH ORDERS TO DC O2.PT'S O2 SAT IS 93% ROOM AIR. SEEN BY DR REYES AND SPOKE TO PT'S SON,ROSSI VIA PHONE FROM [place] WHO ALSO WANTED PT TO GO TO [facility] INSTEAD OF [facility]. CHANGED CODE STATUS TO DNR/DNI-WITH POLST IN THE CHART.ALSO SEEN BY DR BENTLEY(PULMO) FOR PULMO CONSULT. SEEN BY GURVINDER Chase WHERE PT STOOD AND MARCHED AT THE BEDSIDE.SKIN DRY AND WARM TO TOUCH. AFEBRILE. SAFETY MEASURES IN PLACE. CALL LIGHT WITHIN REACH. WILL CONTINUE TO MONITOR.
[2018-12-13] MEDS: BRIMONIDINE TARTRATE OPHT SOLN 5 ML BOTTLE RIGHTEYE SCH ×2 (08:41→16:59)
[2018-12-13] MEDS: FLUTICASONE/VILANTEROL 1 EACH BLST.W.DEV IH SCH (08:41)
[2018-12-13] MEDS: AMLODIPINE BESYLATE 5 MG TABLET PO SCH ×2 (08:42→08:50)
[2018-12-13] MEDS: METOPROLOL TARTRATE 25 MG TABLET PO SCH ×3 (08:42→17:00)
[2018-12-13] MEDS: DICLOFENAC 0.1% OPTH DROPS 5 ML BOTTLE RIGHTEYE SCH ×2 (08:42→16:59)
[2018-12-13] MEDS: prednisoLONE ACETATE OPHT DROPS 5 ML BOTTLE RIGHTEYE SCH ×2 (08:42→16:59)
[2018-12-13] MEDS: ISOSORBIDE MONONITRATE (30MG) 30 MG TAB.SR.24H PO SCH ×2 (08:43→08:49)
[2018-12-13] MEDS ORDERED: IV NS 0.9% 1,000 ML IV SCH (09:00)
--- NOTE | 2018-12-13 11:40 | NUR ---
WOUND CARE CONSULT: PT PRESENTS WITH LEFT ELBOW SCAB, BILATERAL ARM SCARS AND DISCOLORED AREAS, LARGE AREA OF BRUISING ON ABDOMEN, ALL PRESENT ON ADMISSION. RECOMMENDATIONS MADE FOR SKIN PROTECTION. DISCUSSED WITH NURSING STAFF. CURRENT TOBI SCORE IS 15. WILL SEE PRN. PEREZ IN AGREEMENT WITH PLAN OF CARE. Addendum: 12/13/18 at 1142 by ELDA MCKENZIE WNDNU Amended: Links added.
[2018-12-13 16:00] VITALS: BP 132/58
[2018-12-13] MEDS: LACTOBACILLUS RHAMNOSUS GG 1 EACH CAP.SPRINK PO SCH (16:59)
--- NOTE | 2018-12-13 19:00 | NUR ---
PT RESTING IN BED WITH NO C/O PAIN OR DISTRESS. TURNED EVERY TWO HRS.CALL LIGHT PLACED WITHIN REACH.
--- NOTE | 2018-12-13 19:00 | NUR ---
MS RN OPENING NOTES: RECEIVED PT ON 4LPM VIA NC AND IS TOLERATING WELL. PT ASLEEP AT THIS TIME AND RESTING COMFORTABLY. NO SOB NOTED. NO S/S OF DISTRESS. BED KEPT IN LOW, LOCKED POSITION, AND SIDE RAILS X 2UP. BED ALARM ACTIVATED. WILL CONTINUE TO MONITOR PT.
[2018-12-13 20:00] VITALS: BP 104/57
[2018-12-13] MEDS: ACETAMINOPHEN 325 MG TABLET PO PRN (20:11)
--- NOTE | 2018-12-13 20:13 | NUR ---
MS RN NOTES: PT COMPLAINING OF RIGHT UPPER BACK PAIN. PT WAS ADMINISTERED TYLENOL 650MG PO. WILL CONTINUE TO MONITOR.
[2018-12-13] MEDS: ASPIRIN 81 MG TAB.CHEW PO SCH (21:02)
[2018-12-13] MEDS: ALPRAZOLAM 0.25 MG TABLET PO SCH (21:02)
[2018-12-14] MEDS: IPRATROPIUM NEB FS 0.5 MG/2.5 ML AMPUL.NEB NEB SCH ×6 (03:30→22:55)
[2018-12-14] MEDS: ZOSYN IVPB 2.25 G in IV D5W 50ml IV SCH ×3 (05:02→18:37)
--- NOTE | 2018-12-14 06:38 | NUR ---
MS RN CLOSING NOTES: ALL NEEDS WERE ATTENDED AND ANTICIPATED FOR. PT KEPT CLEAN, DRY, AND COMFORTABLE. PT REMAINS ON 4LPM VIA NC AND IS TOLERATING WELL. IV REMAINS INTACT ON R AC#20G AND IS CURRENTLY H/L. PT ASLEEP AT THIS TIME AND RESTING COMFORTABLY. NO SOB NOTED. NO S/S OF DISTRESS. BED KEPT IN LOW, LOCKED POSITION, AND SIDE RAILS X 2UP. PT TURNED AND REPOSITIONED Q 2HRS. BED ALARM ACTIVATED. WILL ENDORSE TO AM NURSE FOR MARTHA.
[2018-12-14 06:39] LABS: CALCIUM, SERUM 8.5 mg/dL (8.5-10.1); CREATININE 0.8 mg/dL (0.6-1.3); POTASSIUM 3.6 mmol/L (3.5-5.1)
[2018-12-14] MEDS: ALBUTEROL FS 2.5 MG/3 ML VIAL.NEB NEB SCH ×4 (07:35→19:21)
[2018-12-14 08:00] VITALS: BP 166/72
--- NOTE | 2018-12-14 08:00 | NUR ---
MS BEAR AM NOTES: RECEIVED PT AWAKE ON ROOM AIR,AND RESTING COMFORTABLY. NO SOB NOTED. NO C/O PAIN OR DISTRESS. BED KEPT IN LOW, LOCKED POSITION, AND SIDE RAILS X 2UP. BED ALARM ACTIVATED. CALL LIGHT PLACED WITHIN REACH. WILL CONTINUE TO MONITOR PT.
[2018-12-14] MEDS: AMLODIPINE BESYLATE 5 MG TABLET PO SCH (09:00)
[2018-12-14] MEDS: METOPROLOL TARTRATE 25 MG TABLET PO SCH ×2 (09:07→17:30)
[2018-12-14] MEDS: LACTOBACILLUS RHAMNOSUS GG 1 EACH CAP.SPRINK PO SCH ×2 (09:07→17:30)
[2018-12-14] MEDS: ISOSORBIDE MONONITRATE (30MG) 30 MG TAB.SR.24H PO SCH (09:08)
[2018-12-14] MEDS: FLUTICASONE/VILANTEROL 1 EACH BLST.W.DEV IH SCH (09:08)
[2018-12-14] MEDS: BRIMONIDINE TARTRATE OPHT SOLN 5 ML BOTTLE RIGHTEYE SCH ×2 (09:08→17:29)
[2018-12-14] MEDS: prednisoLONE ACETATE OPHT DROPS 5 ML BOTTLE RIGHTEYE SCH ×2 (09:09→17:30)
[2018-12-14] MEDS: DICLOFENAC 0.1% OPTH DROPS 5 ML BOTTLE RIGHTEYE SCH ×2 (09:09→17:29)
[2018-12-14 16:00] VITALS: BP 129/57
[2018-12-14] MEDS: VANCOMYCIN 1 GM in IV D5W 250 ML IV SCH (17:22)
--- NOTE | 2018-12-14 19:15 | NUR ---
MS RN NOTES RECEIVED PT IN BED AWAKE AND ABLE TO MAKE NEEDS KNOWN. PT A/O X 4. RESPIRATIONS EVEN AND UNLABORED WITH NO S/S OF ACUTE DISTRESS OR SOB NOTED. NO COMPLAINTS OF PAIN AT THIS TIME. SAFETY MEASURES IN PLACE WITH BED IN LOWEST LOCKED POSITION WITH SIDE RAILS X 2. CALL LIGHT WITHIN REACH. WILL CONTINUE TO MONITOR.
--- NOTE | 2018-12-14 19:17 | NUR ---
PT RESTING IN BED WITH NO BLOODY OUTPUT IN THE DIAPER NOTED.JUST YELLOW URINE OUTPUT.PT DENIES ANY PAIN OR DISTRESS. TURNED EVERY TWO HRS.CALL LIGHT PLACED WITHIN REACH.
[2018-12-14] MEDS: ACETAMINOPHEN 325 MG TABLET PO PRN (19:45)
[2018-12-14 20:00] VITALS: BP 97/48
[2018-12-14] MEDS: ASPIRIN 81 MG TAB.CHEW PO SCH (21:02)
[2018-12-14] MEDS: ALPRAZOLAM 0.25 MG TABLET PO SCH (21:02)
[2018-12-15] MEDS: ZOSYN IVPB 2.25 G in IV D5W 50ml IV SCH ×5 (00:10→23:35)
[2018-12-15] MEDS: IPRATROPIUM NEB FS 0.5 MG/2.5 ML AMPUL.NEB NEB SCH ×6 (03:17→23:18)
[2018-12-15 07:09] LABS: BASOPHILS % (AUTO) 0.2 % (0.0-2.0); EOSINOPHILS % (AUTO) 3.1 % (0.0-6.0); HEMATOCRIT 36 % (33-45); HEMOGLOBIN 11.8 g/dL (11.5-14.8); LYMPHOCYTES # (AUTO) 0.4 /CMM (0.8-4.8); LYMPHOCYTES % (AUTO) 4.6 % (20.0-44.0); MEAN CORPUSCULAR HGB CONC 33 g/dl (31.0-36.0); MEAN CORPUSCULAR VOLUME 91 fL (82-100); MONOCYTES # (AUTO) 0.6 /CMM (0.1-1.30); NEUTROPHILS # (AUTO) 6.8 /CMM (1.8-8.9); NEUTROPHILS % (AUTO) 84.1 % (43.0-81.0); PLATELET COUNT (AUTO) 257 /CMM (150-450); RED BLOOD CELL COUNT(AUTO) 3.98 MIL/uL (4.0-5.2); WHITE BLOOD COUNT (AUTO) 8.1 K/uL (4.3-11.0)
[2018-12-15 07:26] LABS: CALCIUM, SERUM 8.7 mg/dL (8.5-10.1); CARBON DIOXIDE 27 mmol/L (21-32); CHLORIDE 105 mmol/L (98-107); CREATININE 1.4 mg/dL (0.6-1.3); GLUCOSE 100 mg/dL (74-106); POTASSIUM 3.6 mmol/L (3.5-5.1); SODIUM SERUM 141 mmol/L (136-145); UREA NITROGEN, BLOOD 14 mg/dL (7-18)
--- NOTE | 2018-12-15 07:41 | NUR ---
MS RN OPENING NOTES: RECEIVED PT AWAKE ON BED RESTING COMFORTABLY IN MODERATE HIGH BACK REST. A/O X 4. ON OXYGEN 1LPM VIA NC. NO SOB NOTED. NO C/O PAIN OR DISTRESS AT THIS TIME. IV ACCESS ON RFA #20, SL. PATENT AND INTACT. SAFETY MEASURES IN PLACE, BED KEPT IN LOW, LOCKED POSITION WITH SIDE RAILS X 2. BED ALARM ACTIVATED. CALL LIGHT WITHIN REACH. WILL CONTINUE TO MONITOR.
--- NOTE | 2018-12-15 07:51 | NUR ---
MS RN OPENING NOTES: PT IN BED AWAKE AND ABLE TO MAKE NEEDS KNOWN. PT A/O X 4. RESPIRATIONS EVEN AND UNLABORED WITH NO S/S OF ACUTE DISTRESS OR SOB NOTED THROUGHOUT SHIFT. PT KEPT CLEAN, DRY, AND COMFORTABLE. PT WITH RFA#22 G PATENT AND INTACT. NO COMPLAINTS OF PAIN AT THIS TIME. SAFETY MEASURES IN PLACE WITH BED IN LOWEST LOCKED POSITION WITH SIDE RAILS X 2. CALL LIGHT WITHIN REACH. WILL ENDORSE TO ONCOMING NURSE FOR MARTHA.
[2018-12-15 08:00] VITALS: BP 186/76
[2018-12-15] MEDS: ALBUTEROL FS 2.5 MG/3 ML VIAL.NEB NEB SCH ×4 (08:08→19:30)
[2018-12-15] MEDS: METOPROLOL TARTRATE 25 MG TABLET PO SCH ×2 (08:16→17:09)
[2018-12-15] MEDS: ISOSORBIDE MONONITRATE (30MG) 30 MG TAB.SR.24H PO SCH (08:17)
[2018-12-15] MEDS: AMLODIPINE BESYLATE 5 MG TABLET PO SCH (08:17)
[2018-12-15] MEDS: LACTOBACILLUS RHAMNOSUS GG 1 EACH CAP.SPRINK PO SCH ×2 (08:17→17:08)
[2018-12-15] MEDS: FLUTICASONE/VILANTEROL 1 EACH BLST.W.DEV IH SCH (08:18)
[2018-12-15] MEDS: prednisoLONE ACETATE OPHT DROPS 5 ML BOTTLE RIGHTEYE SCH ×2 (08:18→17:09)
[2018-12-15] MEDS: BRIMONIDINE TARTRATE OPHT SOLN 5 ML BOTTLE RIGHTEYE SCH ×2 (08:19→17:10)
[2018-12-15] MEDS: DICLOFENAC 0.1% OPTH DROPS 5 ML BOTTLE RIGHTEYE SCH ×2 (09:04→17:10)
[2018-12-15 16:00] VITALS: BP 138/66
--- NOTE | 2018-12-15 19:04 | NUR ---
MS RN CLOSING NOTES: PT IN BED AWAKE AND ABLE TO MAKE NEEDS KNOWN. PT A/O X 4. ON OXYGEN 1LPM VIA NC. RESPIRATIONS EVEN AND UNLABORED WITH NO S/S OF ACUTE DISTRESS OR SOB NOTED THROUGHOUT SHIFT. PT WITH RFA#22, SL. PATENT AND INTACT. NO COMPLAINTS OF PAIN AT THIS TIME. SAFETY MEASURES IN PLACE WITH BED IN LOWEST LOCKED POSITION WITH SIDE RAILS X 2. CALL LIGHT WITHIN REACH. WILL ENDORSE TO PAINTING CONTRACTOR NURSE FOR MARTHA.
--- NOTE | 2018-12-15 19:30 | NUR ---
MS RN OPENING NOTE RECEIVED PATIENT IN BED. A/O X3. PATIENT ON OXYGEN AT 1L/MIN VIA NASAL CANNULA. RESPIRATIONS ARE EVEN AND UNLABORED. NO SIGNS OF SOB NOTED. DENIES PAIN AT THIS TIME. IV ACCESS IN RFA GAUGE 22 PATENT AND SALINE LOCKED. BED IS LOW AND LOCKED, SIDE RAILS UP X3, BED ALARM ON. CALL LIGHT WITHIN REACH. WILL CONTINUE TO MONITOR.
[2018-12-15 20:00] VITALS: BP_SYST 121; BP_DIAS 63; BP_DIAS 66
--- NOTE | 2018-12-15 20:30 | NUR ---
MS RN NOTE TRANSFERRED PATIENT FROM ROOM 325-2 TO ROOM 324-2 D/T PATIENT IN SHARED ROOM (325) IS PUT NOW ON ISOLATION FOR ESBL URINE. ALL PATIENT BELONGINGS TRANSFERRED TO NEW ROOM.
[2018-12-15] MEDS: ASPIRIN 81 MG TAB.CHEW PO SCH (21:06)
[2018-12-15] MEDS: ALPRAZOLAM 0.25 MG TABLET PO SCH (21:06)
[2018-12-16] MEDS: IPRATROPIUM NEB FS 0.5 MG/2.5 ML AMPUL.NEB NEB SCH ×3 (03:30→11:14)
[2018-12-16] MEDS: ZOSYN IVPB 2.25 G in IV D5W 50ml IV SCH ×2 (06:08→12:17)
--- NOTE | 2018-12-16 06:30 | NUR ---
MS RN NOTE PATIENT IS COMPLAINING IF LOST SUITCASE. I INFORMED THE PATIENT IT WAS NOT ON THE BELONGING LIST WHEN SHE FIRST CAME TO THE HOSPITAL. I ALSO DID NOT SEE IT WHEN TRANSFERRING ALL BELONGINGS TO NEW ROOM. I MADE EFFORT TO ASK EVERYONE ON THE UNIT WHERE I CAN POSSIBLY FIND IT WELL ASKED THE PERSON WHO TOOK THE REPORT OF THE BELONGING LIST. WILL ENDORSE TO NEXT SHIFT NURSE.
[2018-12-16 07:08] LABS: BASOPHILS % (AUTO) 0.3 % (0.0-2.0); EOSINOPHILS % (AUTO) 4.7 % (0.0-6.0); HEMATOCRIT 34 % (33-45); HEMOGLOBIN 11.4 g/dL (11.5-14.8); LYMPHOCYTES # (AUTO) 0.5 /CMM (0.8-4.8); LYMPHOCYTES % (AUTO) 8.3 % (20.0-44.0); MEAN CORPUSCULAR HGB CONC 34 g/dl (31.0-36.0); MEAN CORPUSCULAR VOLUME 90 fL (82-100); MONOCYTES # (AUTO) 0.5 /CMM (0.1-1.30); MONOCYTES % (AUTO) 7.9 % (2.0-12.0); NEUTROPHILS % (AUTO) 78.8 % (43.0-81.0); PLATELET COUNT (AUTO) 285 /CMM (150-450); RED BLOOD CELL COUNT(AUTO) 3.77 MIL/uL (4.0-5.2); WHITE BLOOD COUNT (AUTO) 6.3 K/uL (4.3-11.0)
[2018-12-16] MEDS: ALBUTEROL FS 2.5 MG/3 ML VIAL.NEB NEB SCH ×2 (07:35→11:14)
[2018-12-16 07:36] LABS: CALCIUM, SERUM 8.7 mg/dL (8.5-10.1); CREATININE 1.4 mg/dL (0.6-1.3); GLUCOSE 103 mg/dL (74-106); UREA NITROGEN, BLOOD 15 mg/dL (7-18)
[2018-12-16 07:46] LABS: CARBON DIOXIDE 29 mmol/L (21-32); CHLORIDE 107 mmol/L (98-107); POTASSIUM 3.4 mmol/L (3.5-5.1); SODIUM SERUM 143 mmol/L (136-145)
--- NOTE | 2018-12-16 07:50 | NUR ---
MS RN OPENING NOTES RECEIVED PT AWAKE IN BED IN NO ACUTE SIGNS OF DISTRESS. A/O X4. ABLE TO MAKE NEEDS KNOWN, DENIES PAIN OR ANY DISCOMFORTS AT THIS TIME. ON ROOM AIR AT THIS TIME, TOLERATING WELL, BREATHING EVEN AND UNLABORED. IV SL ON RFA G#22 INTACT, PATENT AND FLUSHES WELL. SAFETY MEASURES IN PLACE. BED IN LOW LOCKED POSITION WITH SIDE-RAILS UPX2. CALL LIGHT WITHIN REACH OF PT. WILL CONTINUE TO MONITOR PT ACCORDINGLY.
--- NOTE | 2018-12-16 08:20 | NUR ---
MS RN CLOSING NOTE PATIENT IS RESTING IN BED. A/O X3. PATIENT MAINTAINED ON OXYGEN AT 1L/MIN VIA NASAL CANNULA. RESPIRATIONS ARE EVEN AND UNLABORED. NO SIGNS OF SOB NOTED THROUGHOUT SHIFT. NO COMPLAINTS OF PAIN THROUGHOUT SHIFT. IV ACCESS MAINTAINED IN RFA GAUGE 22 PATENT AND SALINE LOCKED. BED IS LOW AND LOCKED, SIDE RAILS UP X3, BED ALARM ON. CALL LIGHT WITHIN REACH. WILL ENDORSE TO NEXT SHIFT FOR MARTHA.
[2018-12-16] MEDS: LACTOBACILLUS RHAMNOSUS GG 1 EACH CAP.SPRINK PO SCH (08:40)
[2018-12-16] MEDS: AMLODIPINE BESYLATE 5 MG TABLET PO SCH (08:41)
[2018-12-16] MEDS: ISOSORBIDE MONONITRATE (30MG) 30 MG TAB.SR.24H PO SCH (08:41)
[2018-12-16] MEDS: METOPROLOL TARTRATE 25 MG TABLET PO SCH (08:41)
[2018-12-16] MEDS: FLUTICASONE/VILANTEROL 1 EACH BLST.W.DEV IH SCH (08:58)
[2018-12-16] MEDS: DICLOFENAC 0.1% OPTH DROPS 5 ML BOTTLE RIGHTEYE SCH (08:58)
[2018-12-16] MEDS: BRIMONIDINE TARTRATE OPHT SOLN 5 ML BOTTLE RIGHTEYE SCH (08:59)
[2018-12-16] MEDS: prednisoLONE ACETATE OPHT DROPS 5 ML BOTTLE RIGHTEYE SCH (08:59)
[2018-12-16 09:35] VITALS: BP 156/89
--- NOTE | 2018-12-16 10:20 | NUR ---
MS RN NOTES SPOKE TO , RELAYED MAGNESIUM LEVEL OF 3.4 LOW WITH NO NEW ORDER.
[2018-12-16] MEDS ORDERED: POTASSIUM CHLORIDE 20 MEQ TAB.PRT.SR PO SCH (10:30)
[2018-12-16] MEDS: ACETAMINOPHEN 325 MG TABLET PO PRN (10:39)
--- NOTE | 2018-12-16 12:13 | NUR ---
MS RN NOTES DISCHARGE REPORT GIVEN TO ARLETTE BEAR OF [facility]; AKASH RICHEY NOTIFIED OF TIME AND PLACE TO TRANSFER.
--- NOTE | 2018-12-16 13:25 | NUR ---
MS RN NOTES PATIENT PICKED-UP BY [facility] [place] WITH 2EMT'S. ALERT AND ORIENTED X 4. AFBERILE WITH LAST BP 130/70 HR 90 BEFORE GETTING UP IN THE GURNEY. RFA IV LINE REMOVED WITH NO ACTIVE BLEEDING NOTED. DISCHARGE PACKET GIVEN TO EMT. REPORT GIVEN TO ARLETTE OF [facility]. SON ROSSI MADE AWARE OF TRANSFER.
== END 2018-12-16 13:26 | DRG 177 ==
LOC: ER 10:18 → TELE 12:38 → MED 12-13 08:31
PROVIDERS: ADMIT Internal Medicine; ATTEND Family Medicine
DX: J15.6 Pneumonia due to other Gram-negative bacteria (principal); J96.01 Acute respiratory failure with hypoxia; J86.9 Pyothorax without fistula; N17.0 Acute kidney failure with tubular necrosis; C34.90 Malignant neoplasm of unspecified part of unspecified bronchus or lung; E44.0 Moderate protein-calorie malnutrition; J91.0 Malignant pleural effusion; I13.0 Hypertensive heart and chronic kidney disease with heart failure and stage 1 through stage 4 chronic kidney disease, or unspecified chronic kidney disease; C79.9 Secondary malignant neoplasm of unspecified site; J18.1 Lobar pneumonia, unspecified organism; I25.10 Atherosclerotic heart disease of native coronary artery without angina pectoris; I25.2 Old myocardial infarction; Z91.013 Allergy to seafood; Z98.890 Other specified postprocedural states; Z79.82 Long term (current) use of aspirin; Z79.51 Long term (current) use of inhaled steroids; Z79.899 Other long term (current) drug therapy; N18.9 Chronic kidney disease, unspecified; I50.9 Heart failure, unspecified; G89.29 Other chronic pain; M19.90 Unspecified osteoarthritis, unspecified site; Z92.3 Personal history of irradiation; Z85.118 Personal history of other malignant neoplasm of bronchus and lung; E87.6 Hypokalemia; E78.5 Hyperlipidemia, unspecified; J43.9 Emphysema, unspecified; Z87.891 Personal history of nicotine dependence
CPT/HCPCS: 36415; 71045-TC; 80048-TC; 80061-TC; 80202-TC; 83735-TC; 84100-TC; 84484-TC; 85025-TC; 87081-TC; 94799-TC; 97110-TC; 97116-TC; 97530-TC; A4216; G0378; J2543; J3370; J7030; J7040; J7050; J7060